=== PATIENT | female | born 1985 | race Caucasian/White ===

== ENCOUNTER 2019-09-14 08:28 | Emergency (ER) | payer BC, SELFPAY ==
[2019-09-14 08:41] VITALS: BP 129/70; PULSE 93; RESP 16; TEMP 36.5; O2SAT 99
--- NOTE | 2019-09-14 08:54 | ED.GENADULT ---
HPI - General Adult General Chief complaint: Extremity Injury, Lower Stated complaint: left leg pain Time Seen by Provider: 09/14/19 08:55 Source: patient and RN notes reviewed Mode of arrival: ambulatory Limitations: no limitations History of Present Illness HPI narrative: This is a 33 years old female present to the office for an evaluation of acute exacerbation of left lower back pain for the past 5-day. She has been dealing with recurrent lower back pain since her delivery of her child. Her child is now 4 years old. Symptoms seem to exacerbate after a lot of movement lately. She has tried Tylenol and heat pad with no relief. Lying down helps temporarily relieves her pain. Standing up is worse than sitting down or walking. Denies urinary or bowel incontinence. Denies numbness or tingling in her toe. Related Data Home Medications Medication Instructions Recorded Confirmed norgestimate-ethinyl estradiol 1 tablet PO DAILY 09/14/19 09/14/19 [Sprintec (28)] Allergies Allergy/AdvReac Type Severity Reaction Status Date / Time No Known Allergies Allergy Unverified 09/14/19 08:49 Review of Systems Review of Systems: Narrative: CONSTITUTIONAL: Denies fever or feeling ill CARDIOVASCULAR: Denies chest pain RESPIRATORY: Denies dyspnea GASTROINTESTINAL: Denies nausea, vomiting GENITOURINARY: Denies urinary/bowel symptoms SKIN: Denies rash/rash MUSCULOSKELETAL: Reports left lower back pain that goes down her thigh NEUROLOGIC: Denies lightheaded/numbness. PMFSH Family History Family History Father Diabetes mellitus Grandparent Family history of cardiovascular disease Family history of coronary artery disease Social History Social History Smoking status: Former smoker Tobacco type: cigarettes Second hand tobacco smoke exposure: No Smoking end date: 04/20/16 Alcohol intake: current Substance use: never Substance use type: does not use Gender identity (if verbalized by the patient): Female Comments At time of signature, I agree with nursing past medical, surgical, social and family history. There is no relevant family history pertinent to the presenting complaint. Exam Narrative: Exam Narrative: GENERAL: This is a well-nourished, well-developed patient, in no apparent distress. CARDIOVASCULAR: Regular rate and rhythm without murmurs, gallops, or rubs. RESPIRATORY: Clear to auscultation. Breath sounds equal bilaterally. No wheezes, rales, or rhonchi. GASTROINTESTINAL: Abdomen soft, non-tender, nondistended. Bowel sounds are active. No hepato-splenomegaly, or palpable masses. No guarding. NEURO: awake, alert, and oriented to person, place and time. There were no obvious focal neurologic abnormalities. Steady gait BACK: NO rash/lesion noted on her back. There is tenderness in the paraspinous muscles in the lumbar area. No tenderness over the spinous processes of the lumbar vertebrae. LEGS: Normal strength including dorsi-flexion and plantar flexion of the feet. Negative bilateral straight leg raising, normal and symmetrical knee reflexes. Patient able to bend forward without any exacerbation of pain. Terrence Coma Scale Eye Opening: Spontaneous 4 Luther Coma Scale Motor: Obeys Commands 6 Terrence Coma Scale Verbal: Oriented 5 Course Vital Signs Vital signs: Vital Signs Temperature 97.7 F 09/14/19 08:41 Pulse Rate 93 09/14/19 08:41 Respiratory Rate 16 09/14/19 08:41 Blood Pressure 129/70 09/14/19 08:41 Pulse Oximetry 99 09/14/19 08:41 Temperature 97.7 F 09/14/19 08:41 Pulse Rate 93 09/14/19 08:41 Respiratory Rate 16 09/14/19 08:41 Blood Pressure 129/70 09/14/19 08:41 Pulse Oximetry 99 09/14/19 08:41 Medical Decision Making MDM Narrative Medical decision making narrative: Discharge instructions reviewed with patient, as well as provided in
[2019-09-14] MEDS: KETOROLAC (*BKC) 60 MG/2 ML VIAL IM (09:13)
== END 2019-09-14 09:43 | disposition home or self-care (01) ==
PROVIDERS: Emergency Provider Nurse Practitioner; PCP Family Medicine
DX: M54.42 Lumbago with sciatica, left side (principal); Z87.891 Personal history of nicotine dependence
CPT/HCPCS: 96372; 99213; G0463; J1885

== ENCOUNTER 2020-07-04 11:30 | Outpatient (CLI) | payer BC, SELFPAY | END 2020-07-04 11:31 | disposition home or self-care (01) | LOC: ANHCOVIDVC 11:31 | PROVIDERS: PCP Family Medicine | DX: Z23 Encounter for immunization (principal) | CPT/HCPCS: 0001A; 91300 ==

== ENCOUNTER 2020-07-25 11:29 | Outpatient (CLI) | payer BC, SELFPAY | END 2020-07-25 11:30 | disposition home or self-care (01) | LOC: ANHCOVIDVC 11:30 | PROVIDERS: PCP Family Medicine | DX: Z23 Encounter for immunization (principal) | CPT/HCPCS: 0002A; 91300 ==

== ENCOUNTER 2021-10-17 09:13 | Outpatient (CLI) | payer OTHER, SELFPAY ==
--- NOTE | 2021-10-17 11:00 | NEURO_ITS ---
Impression: # Complains of all extremity numbness. # Normal motor and sensory nerve conduction study, proximally and distally. # Normal needle/EMG exam. # Clinical correlation recommended. Nerve Conduction Studies Anti Sensory Summary Table Stim Site NR Peak (ms) P-T Amp (?V) Site1 Site2 Delta-P (ms) Dist (cm) Kwaku (m/s) Left Median Anti Sensory (2-3nd Digit) Wrist 2.9 80.3 Wrist 2-3nd Digit 2.9 14.0 48 Wrist 2.7 58.8 Wrist 2-3nd Digit 2.9 14.0 48 Right Median Anti Sensory (2-3nd Digit) Wrist 2.6 87.3 Wrist 2-3nd Digit 2.6 14.0 54 Wrist 2.5 91.2 Wrist 2-3nd Digit 2.6 14.0 54 Left Radial Anti Sensory (Base 1st Digit) Wrist 1.9 50.1 Wrist Base 1st Digit 1.9 0.0 Right Radial Anti Sensory (Base 1st Digit) Wrist 2.1 47.2 Wrist Base 1st Digit 2.1 0.0 Left Sup Fibular Anti Sensory (Ant Lat Mall) 14 cm 3.0 24.9 14 cm Ant Lat Mall 3.0 16.0 53 Right Sup Fibular Anti Sensory (Ant Lat Mall) 14 cm 3.3 24.7 14 cm Ant Lat Mall 3.3 16.0 48 Left Sural Anti Sensory (Lat Mall) Calf 3.9 19.1 Calf Lat Mall 3.9 16.0 41 Right Sural Anti Sensory (Lat Mall) Calf 3.9 3.7 Calf Lat Mall 3.9 16.0 41 Left Ulnar Anti Sensory (5th Digit) Wrist 2.3 64.6 Wrist 5th Digit 2.3 14.0 61 Right Ulnar Anti Sensory (5th Digit) Wrist 2.2 73.6 Wrist 5th Digit 2.2 14.0 64 Motor Summary Table Stim Site NR Onset (ms) O-P Amp (mV) Site1 Site2 Delta-0 (ms) Dist (cm) Kwaku (m/s) Left Median Motor (Abd Poll Brev) Wrist 2.8 3.0 Elbow Wrist 4.5 28.0 62 Elbow 7.3 2.5 Right Median Motor (Abd Poll Brev) Wrist 2.6 3.0 Elbow Wrist 4.2 26.0 62 Elbow 6.8 4.3 Left Peroneal Motor (Vastus Med) Ankle 4.0 1.2 Popit Ankle 7.6 40.0 53 Popit 11.6 1.0 Right Peroneal Motor (Vastus Med) Ankle 4.1 2.0 Popit Ankle 7.0 37.0 53 Popit 11.1 1.4 Left Tibial Motor (Abd Pride Brev) Ankle 4.5 5.7 Knee Ankle 7.4 40.0 54 Knee 11.9 5.6 Right Tibial Motor (Abd Pride Brev) Ankle 4.2 4.2 Knee Ankle 7.2 39.0 54 Knee 11.4 5.0 Left Ulnar Motor (Abd Dig Minimi) Wrist 2.5 8.6 A Elbow Wrist 4.6 29.0 63 A Elbow 7.1 7.7 Right Ulnar Motor (Abd Dig Minimi) Wrist 2.3 8.3 A Elbow Wrist 4.7 28.0 60 A Elbow 7.0 6.8 F Wave Studies NR F-Lat (ms) L-R F-Lat (ms) Left Median (Mrkrs) (Abd Poll Brev) 24.90 0.66 Right Median (Mrkrs) (Abd Poll Brev) 24.24 0.66 Left Peroneal (Mrkrs) (EDB) 46.41 1.03 Right Peroneal (Mrkrs) (EDB) 45.38 1.03 Left Tibial (Mrkrs) (Abd Hallucis) 46.72 0.00 Right Tibial (Mrkrs) (Abd Hallucis) 46.72 0.00 Left Ulnar (Mrkrs) (Abd Dig Min) 25.31 0.24 Right Ulnar (Mrkrs) (Abd Dig Min) 25.56 0.24 EMG Side Muscle Nerve Root Ins Act Fibs Amp Dur Recrt Comment Right 1stDorInt Ulnar C8-T1 Nml Nml Nml Nml Nml Right Ext Indicis Radial (Post Int) C7-8 Nml Nml Nml Nml Nml Right Ext Digitorum Radial (Post Int) C7-8 Nml Nml Nml Nml Nml Right BrachioRad Radial C5-6 Nml Nml Nml Nml Nml Right PronatorTeres Median C6-7 Nml Nml Nml Nml Nml Right Abd Poll Brev Median C8-T1 Nml Nml Nml Nml Nml Right AntTibialis Dp Br Fibular L4-5 Nml Nml Nml Nml Nml Right Gastroc Tibial S1-2 Nml Nml Nml Nml Nml
== END 2021-10-17 09:14 | disposition home or self-care (01) ==
PROVIDERS: PCP Family Medicine; Visit Provider Nurse Practitioner Gerontology
DX: G62.9 Polyneuropathy, unspecified (principal)
CPT/HCPCS: 95886; 95913

== ENCOUNTER 2022-03-07 09:25 | Outpatient (CLI) | payer OTHER, SELFPAY ==
--- NOTE | 2022-03-07 09:43 | EST_ITS ---
Patient Info Name: Arleth Hair Age: 36 years : 1985 Gender: Female Ht: 62 in Wt: 205 lbs BSA: 2.06 m2 HR: 70 bpm BP: 124 / 72 mmHg Heart Rhythm: Sinus Rhythm Technical Quality: Good Exam Date: 03/07/2022 10:16 AM Exam Location: [facility] Patient Status: Outpatient Admit Date: 03/07/2022 Staff Ordering Physician: Chase Meraz DO Rayon Winder: Mónica Montoya RDCS Attending Provider: CHASE MERAZ DO Referring Physician: Mansoor HAM; Exercise Technologist: Ophelia Ramirez RDCS Exercise Physician: Chase Meraz DO Exam Type: CA stress echo Study Info Indications R07.9 - Chest pain, unspecified Treadmill exercise stress echocardiogram is performed. Summary 1. 1. Negative Milan exercise stress test for ischemic ST changes by ECG criteria. 2. 2. Good functional capacity, achieving 10 METs of workload. 3. 3. Appropriate HR response to exercise. 4. 4. Appropriate HR recovery at 1 minute post exercise. 5. 5. Negative stress echocardiogram for ischemia by wall motion analysis. 6. 6. Patient informed of the above results. Stress Echo Findings Left Ventricle Appropriate increase in LV endocardial thickening with systole. Appropriate augmentation of contractility with systole. No wall motion abnormality. Left Ventricle Normal LV systolic function, no wall motion abnormality. Protocol: Milan Stress ECG Details Stage: REST Duration (min): 1 min : 50 sec Speed (mph): 0.0 Grade (%): 0 HR (bpm): 94 SBP (mmHg): 124 DBP (mmHg): 72 METS: --- Stage: REST Duration (min): 10 min : 39 sec Speed (mph): 0.0 Grade (%): 0 HR (bpm): 79 SBP (mmHg): 124 DBP (mmHg): 72 METS: --- Stage: STAGE 1 Duration (min): 1 min : 0 sec Speed (mph): 1.7 Grade (%): 10 HR (bpm): 111 SBP (mmHg): 124 DBP (mmHg): 72 METS: --- Stage: STAGE 1 Duration (min): 2 min : 0 sec Speed (mph): 1.7 Grade (%): 10 HR (bpm): 118 SBP (mmHg): 124 DBP (mmHg): 72 METS: --- Stage: STAGE 1 Duration (min): 3 min : 0 sec Speed (mph): 1.7 Grade (%): 10 HR (bpm): 117 SBP (mmHg): 143 DBP (mmHg): 77 METS: --- Stage: STAGE 2 Duration (min): 1 min : 0 sec Speed (mph): 2.5 Grade (%): 12 HR (bpm): 127 SBP (mmHg): 143 DBP (mmHg): 77 METS: --- Stage: STAGE 2 Duration (min): 2 min : 0 sec Speed (mph): 2.5 Grade (%): 12 HR (bpm): 137 SBP (mmHg): 138 DBP (mmHg): 76 METS: --- Stage: STAGE 2 Duration (min): 3 min : 0 sec Speed (mph): 2.5 Grade (%): 12 HR (bpm): 137 SBP (mmHg): 138 DBP (mmHg): 76 METS: --- Stage: STAGE 3 Duration (min): 1 min : 0 sec Speed (mph): 3.4 Grade (%): 14 HR (bpm): 145 SBP (mmHg): 138 DBP (mmHg): 76 METS: --- Stage: STAGE 3 Duration (min): 2 min : 0 sec Speed (mph): 3.4 Grade (%): 14 HR (bpm): 158 SBP (mmHg): 173 DBP (mmHg): 88 METS: ---
== END 2022-03-07 09:26 | disposition home or self-care (01) ==
PROVIDERS: PCP Family Medicine; Visit Provider Internal Medicine Cardiovascular Disease
DX: R07.9 Chest pain, unspecified (principal)
CPT/HCPCS: 93351

== ENCOUNTER 2022-03-10 08:35 | Outpatient (CLI) | payer OTHER, SELFPAY ==
--- NOTE | 2022-03-28 13:22 | WPDHOMESLEEP ---
Sleep Study - Home Unattended Date of Study: 03/10/22 Ordering Provider: Chase Max DO Interpreting Provider: Alba Wright DO Home Sleep Study Type: Watch PAT Height: 1.57 m Weight: 92.986 kg Body Mass Index: 37.5 Neck Circumference (inches): 15.5 [place]: 12 Reason for Sleep Study Unrefreshing sleep Sleep History The patient is a 36-year-old female with anxiety, dyslipidemia, back pain and history of tobacco use that had a sleep study ordered by her box spring maker for evaluation of sleep apnea. The patient rarely awakens from sleep short of breath. She occasionally awakens at night with heartburn, belching or cough. She occasionally snores loud enough that others complain. She frequently has trouble sleeping when she has a cold. She rarely wakes up gasping for air throughout the night. She frequently has breathing problems at night observed by herself or others. She occasionally sweats excessively at night. She occasionally has heart palpitations or irregular heartbeats during the night. She occasionally falls asleep during the day but never while driving. she denies experiencing loss of muscle tone when extremely emotional. She rarely has trouble at school or work due to sleepiness. She rarely feels unable to move while waking up or falling asleep. She denies experiencing vivid dreamlike scenes upon awakening or falling asleep. She denies feeling afraid of going to sleep. She rarely has nightmares and rarely remembers her dreams. She occasionally has thoughts racing through her mind. She rarely feels sad or depressed. She constantly has anxiety. She frequently has muscular tension and frequently notices parts of her body jerk. She occasionally kicks during the night. She occasionally has crawling and aching feelings in her legs as well as leg pain during the night. She denies grinding her teeth during sleep but occasionally awakens with morning jaw pain. She is constantly bothered by pain during the day and occasionally awakened by pain during the night. She frequently wakes up feeling stiff in the morning. She frequently wakes up with sore or achy muscles. She frequently wakes up with pain in the neck, spine and other joints. The patient goes to bed at 10:00 p.m. on weekdays and at 11:00 p.m. on the weekends. It takes her 20 minutes to fall asleep. She wakes up 3-4 times throughout the night for unknown reasons. It takes her 30 minutes to fall back asleep. She wakes up at 6:00 a.m. on weekdays and 8:00 a.m. on the weekends. She typically gets 7-8 hours of sleep per night. She will stay in bed for 5-10 minutes after waking up in the morning. She currently lives with her partner and their son. She denies consuming any caffeinated beverages within 2 hours of bedtime. She denies engaging in physical exercise before bedtime. She will watch television before falling asleep. She denies taking naps in the afternoon or the evening. She drinks 1 cup of coffee per day. She will drink 1 glass of wine per week. She quit smoking cigarettes. She denies recreational drug use. [facility] Past Medical History Medical History Back pain Bronchitis COVID-19 COVID-19 long hauler FRANDY (generalized anxiety disorder) Trochanteric bursitis of left hip Family History Family History Father Diabetes mellitus Grandparent Family history of cardiovascular disease Family history of coronary artery disease Social History Social History Social History: Single Smoking packs per day: 0.5 Smoking cigarettes per day: 10.0 Years smoked: 10 Smoking pack-years: 5.00 Smoking status: Former smoker Tobacco type: cigarettes Second hand tobacco smoke exposure: No Smoking end date: 04/20/16 Alcohol intake: current Alcohol use details: rarely Substan
[2022-03-28 13:37] VITALS: BMI 37.5
== END 2022-03-11 10:47 | disposition home or self-care (01) ==
LOC: ANHCSM 08:36
PROVIDERS: PCP Family Medicine; Visit Provider Internal Medicine Cardiovascular Disease
DX: G47.10 Hypersomnia, unspecified (principal); G47.33 Obstructive sleep apnea (adult) (pediatric)
CPT/HCPCS: 95800

== ENCOUNTER 2022-07-01 13:23 | Outpatient (CLI) | payer OTHER, SELFPAY ==
--- NOTE | 2022-07-01 13:30 | ECG_ITS ---
Measurements Intervals [place] Rate: 71 P: 34 MS: 140 QRS: 11 QRSD: 89 T: 9 QT: 346 QTc: 377 Interpretive Statements SINUS RHYTHM WITH SINUS ARRHYTHMIA VOLTAGE CRITERIA FOR LVH CONSIDER INFERIOR INFARCT, AGE INDETERMINATE BASELINE ARTIFACT- I, II, III, AVR, AVL, AVF, V4-V6 ABNORMAL ECG NO PREVIOUS ECG AVAILABLE FOR COMPARISON Electronically Signed On 07-01-2022 14:02:21 CDT by Chase Max D.O.
[2022-07-01 14:15] LABS: Hematocrit 42.9 % (37.0-47.0); Hemoglobin 13.7 g/dL (12.0-15.0); Mean Corpuscular HGB Conc 31.9 g/dl (32-36); Mean Corpuscular Hemoglobin 28.4 pg (26-34); Mean Corpuscular Volume 88.8 fl (80-100); Mean Platelet Volume 8.4 fl (7.4-10.4); Platelet Count Result 372 k/mm3 (150-375); Red Blood Count 4.83 M/mm3 (4.2-5.4); Red Cell Distribution Width 12.9 % (11.5-14.5)
[2022-07-01 14:46] LABS: Alanine Aminotransferase 26 U/L (6-35); Albumin Level 4.2 g/dL (3.5-5.1); Alkaline Phosphatase 57 U/L (38-126); Anion Gap 7 mmol/L (8-16); Aspartate Amino Transferase 28 U/L (14-36); Bilirubin,Total 0.7 mg/dL (0.2-1.3); Blood Urea Nitrogen 13 mg/dL (7-17); Calcium 8.8 mg/dL (8.4-10.2); Carbon Dioxide 27 mmol/L (22-30); Chloride 106 mmol/L (98-107); Estimated Glomerular Filt Rate > 60; Glucose 170 mg/dL (65-110); Potassium 3.8 mmol/L (3.4-5.0); Sodium 140 mmol/L (137-145)
== END 2022-07-01 13:24 | disposition home or self-care (01) ==
LOC: ANHSURGERY 13:30
PROVIDERS: Internal Medicine Cardiovascular Disease; PCP Family Medicine; Visit Provider Obstetrics & Gynecology
DX: E78.2 Mixed hyperlipidemia (principal); Z30.09 Encounter for other general counseling and advice on contraception
CPT/HCPCS: 36415; 80053; 85027; 93005

== ENCOUNTER → 2022-07-01 15:51 | Outpatient (CLI) | payer OTHER, SELFPAY ==
--- NOTE | ~2022-07-01 | XR_ITS ---
AP and oblique views of the SI joints CLINICAL HISTORY: Polyarthralgia FINDINGS: No fracture or dislocation seen. Joint spaces are preserved. No evidence for inflammatory a rthropathy, sclerosis, or osteoarthritis. Soft tissues are unremarkable. IMPRESSION: Unremarkable exam. Reviewed, dictated and finalized at location . IMPRESSION: Unremarkable exam.
--- NOTE | ~2022-07-01 | XR_ITS ---
EXAM: XR knee RT 3V, XR knee LT 3V DATE: 07/01/2022 16:46 HISTORY: Polyarthralgia . COMPARISON: None available. FINDINGS: Normal mineralization. No fracture or dislocation. No lytic or blastic lesion. Joint space s are maintained. Minimal bilateral tricompartmental osteophytosis. Calcification of the right medial meniscus, possibly related to prior surgery. No erosion or periosteal change. Trace bilateral knee j oint fluid. Soft tissues within normal limits. IMPRESSION: Very mild bilateral tricompartmental knee osteoarthritis. Trace bilateral knee joint effu sions. Reviewed, dictated and finalized at location K. IMPRESSION: Very mild bilateral tricompartmental knee osteoarthritis. Trace juan ateral knee joint effusions.
--- NOTE | ~2022-07-01 | XR_ITS ---
Cervical Spine: AP, lateral, open-mouth views Clinical History: Polyarthralgia Findings: The normal lordotic curve is maintained. The vertebral bodies and posterior elements appea r intact. The intervertebral disc spaces are well maintained. Pre-vertebral soft tissues are unremar kable. Impression: No significant abnormality is seen. Reviewed, dictated and finalized at [facility]. Impression: No significant abnormality is seen.
--- NOTE | ~2022-07-01 | XR_ITS ---
Lumbosacral Spine: AP and lateral views Clinical History: Pain Findings: The normal lordotic curve is maintained. Suggestion of minimal anterior wedging deformity o f T12. There are minimal degenerative disc changes throughout the lumbar spine. Probable minimal grad e 1 retrolisthesis of L3 over L4. The intervertebral disc spaces are preserved. The sacroiliac joint s are normally outlined. Impression: Minimal anterior wedging deformity of T12. Minimal grade 1 retrolisthesis of L3 over L4. Minimal degenerative disc changes in the lumbar spine. Reviewed, dictated and finalized at location M. Impression: Minimal anterior wedging deformity of T12. Minimal grade 1 retrolisthesis of L3 over L4. Minimal degenerative disc changes in the lumbar spine.
== END ==
PROVIDERS: PCP Physician Assistant Medical; Visit Provider Physician Assistant Medical
DX: M79.10 Myalgia, unspecified site (principal); M51.36 Other intervertebral disc degeneration, lumbar region; M17.0 Bilateral primary osteoarthritis of knee
CPT/HCPCS: 72040; 72100; 72202; 73562

== ENCOUNTER 2022-07-03 00:47 | Day surgery (SDC) | payer OTHER, SELFPAY ==
[2022-06-23 09:45] VITALS: BMI 38.7
--- NOTE | 2022-06-23 09:53 | PC.NURSE ---
Report to the Outpatient Waiting Room, entrance under the green pavilion located off [facility], at time 07:00AM on date 07-03-22. Planned Procedure Time: 09:00AM. Time changes happen often and if your time is changed the preop area will call you the afternoon before. - You and your visitor will be asked to self-screen and do not enter if you have any COVID symptoms. - Only one visitor is requested with a max of two and NO children visitors are allowed at this time. - The patient visitor may be requested to leave or wait in car when not with patient due to distancing restrictions. - A mask is optional within the hospital at this time. Patients may have clear liquids (water, carbonated beverages, clear teas, apple juice) until 3 hours prior to surgery (06:00AM) with a maximum of 20 ounces. - No food from midnight until time of surgery Take the following medications with a SIP of water the morning of surgery: N/A DO NOT STOP ANY OF YOUR OTHER PRESCRIPTION MEDICATIONS PRIOR TO SURGERY ?EXCEPT THE FOLLOWING Medications to discontinue per physician VITAMINS AND SUPPLEMENTS Date to take last dose 06-29-22 Please no make-up, nail iraqi, hairspray, perfume, deodorant, or body powder the day of surgery. No jewelry (including any body piercings) or valuables the day of surgery, leave them at home. Please take a shower or bath the night before, or the morning of, surgery with an antibacterial soap. Wear comfortable, loose fitting clothing. - Jewelry must be removed prior to entering the operating room. Rings and piercings that are not removed may be cut off. - The hospital will not accept responsibility for valuables. - Please leave all valuables, including medications, at home the day of surgery. If you are going home after surgery, a licensed electric train driver must drive you home. - NO public transportation without another adult if you receive anesthesia. - We recommend that an adult stay with you for 24 hours following discharge. - We also recommend that you do not drive, make important decision, drink alcoholic beverages, or take any drugs that were not prescribed by your health care provider for at least 24 hours after your discharge time. Follow any additional instructions given to you from your surgeon. If you or anyone in your household have experienced Covid symptoms in the past week, please notify your surgeon or the nurse liaison at the phone number below for possible testing. Telephone instructions given to PATIENT and asked if any additional questions and then verbalized understanding. Patient advised to call surgeon office or pre surgery nurse liaison [phone] if any additional questions.
--- NOTE | 2022-07-01 18:26 | PM.IMHP ---
H&P: HPI History of Present Illness Date/Time: 07/01/22 18:26 36-year-old female 3 para 1021 presents for permanent sterilization. She is currently using control pills but desires permanent sterilization. We have discussed that indeed this will be a permanent procedure and discussed the failure rate and increased risk of ectopic and regret and she strongly does desires to proceed. She has had a section x1 and laparoscopic evaluation and removal of IUD due to a perforated uterus with IUD in the pelvic cavity. Otherwise no significant gynecologic or surgical issues. Chief Complaint: Desires sterilization Review of Systems Review of Systems: All systems reviewed & are unremarkable except as noted in HPI and below PMFSH Past Medical History Medical History Anxiety Back pain Bronchitis COVID-19 COVID-19 long hauler Encounter for IUD insertion 05/22/15 Paragard insertion Encounter for IUD removal 06/14/15 removed in OR b/c IUD migrated to abdominal wall FRANDY (generalized anxiety disorder) Gestational diabetes High cholesterol Kidney stones Migraines Sphincter of Oddi dysfunction Trochanteric bursitis of left hip Surgical History Surgical History History of 04/15/15 primary c/s--gestational diabetes Leonardo History of cholecystectomy (~2013) History of elective x2 History of knee surgery (~1999) (R) knee History of laparoscopy (06/14/15) lscope IUD removal--migrated IUD adhered to abdominal wall Family History Family History Father Diabetes mellitus Acute myocardial infarction Fibromyalgia Grandparent Heart disease maternal grandfather paternal grandfather Osteoporosis maternal grandmother Mother Multiple sclerosis Social History Social History Social History: Single Smoking packs per day: 0.5 Smoking cigarettes per day: 10.0 Years smoked: 12 Smoking pack-years: 6.00 Smoking status: Former smoker Tobacco type: cigarettes Second hand tobacco smoke exposure: Yes (NOT CURRENTLY) Smoking end date: 06/18/16 Alcohol intake: current Drinks per week: 1 Alcohol use details: MINIMAL Substance use: never Substance use type: does not use Living arrangements: with family Additional living arrangements comments: Pt lives with her fiance and her son. Occupation/Education: occupation Additional occupation/education comments: [employer] Gender identity (if verbalized by the patient): Female Sexual Orientation (if Verbalized by the Patient): Straight or Heterosexual Spiritual care concerns: No Meds Home Medications and Allergies Home Medications Medication Instructions Recorded Confirmed Type azelastine 137 mcg (0.1 %) nasal 1 spray intranasal Q12H #30 mL 01/03/21 06/23/22 Rx spray aerosol APAP #1 ea 03/28/22 05/27/22 Rx atorvastatin 20 mg tablet 20 mg PO DAILY #90 tabs 04/07/22 06/23/22 Rx omega 4-ydf-vlf-fish oil 1,000 mg 1 cap PO BID #180 caps 04/07/22 06/23/22 Rx (120 mg-180 mg) capsule (Fish Oil) norgestimate 0.25 mg-ethinyl 1 tablet PO DAILY #84 tabs 05/26/22 06/23/22 Rx estradiol 35 mcg tablet (Sprintec (28)) Adult Probiotic 1 tab-cap PO DAILY 06/23/22 06/23/22 History tumeric 100 mg-gris 150 mg-olive 1 cap PO DAILY 06/23/22 06/23/22 History 50 mg-oreg 150 mg-caprylate capsule Allergies Allergy/AdvReac Type Severity Reaction Status Date / Time No Known Allergies Allergy Verified 06/23/22 09:42 Exam Const: General: cooperative, healthy appearing and comfortable Resp: Effort & Inspection: normal respiratory effort Auscultation: clear to auscultation bilaterally Cardio: Rate: regular rate Rhythm: regular rhythm GI: Inspection: normal
[2022-07-03] VITALS (7 sets, daily range): BP systolic 117–134; BP diastolic 64–86; PULSE 56–101; RESP 16–20; TEMP 36.4–36.7; O2SAT 98–100
[2022-07-03] MEDS: ACETAMINOPHEN 500 MG TABLET 1000 MG PO (07:07)
--- NOTE | 2022-07-03 07:30 | WPDHPUPDATE1 ---
History and Physical Update Update Date/Time: 07/03/22 07:30 History and Physical has been reviewed, including an updated exam of the patient. There are NO changes in the patient's condition. Risks, benefits, and alternatives have been discussed and questions answered. Patient agrees to proceed with procedure.
[2022-07-03] MEDS: KETOROLAC 15 MG/ML VIAL (*BKC) IV PUSH (08:23)
--- NOTE | 2022-07-03 08:32 | WPDANESEPPF ---
Anes - Initial Pre Proc Eval Procedure: Operation Date: 07/03/22 09:00 Proposed Procedures p Laparoscopic Bilateral Salpingectomy - Stanley Ward MD Date/Time: 07/03/22 08:32 Surgeon: Stanley Ward MD Pre Op Diagnosis: Desire Sterilization Patient Data Age: 36 Gender: F Height: 1.57 m Weight: 94.4 kg Last Vital Signs Temp 36.4 C 07/03/22 07:13 Pulse 95 07/03/22 07:13 Resp 16 07/03/22 07:13 BP 134/86 07/03/22 07:13 Pulse Ox 98 07/03/22 07:13 O2 Del Method Room Air 07/03/22 07:13 Allergies Allergy/AdvReac Type Severity Reaction Status Date / Time No Known Allergies Allergy Verified 07/03/22 07:02 Home Medications Medication Instructions Recorded Confirmed Type azelastine 137 mcg (0.1 %) nasal 1 spray intranasal Q12H #30 mL 01/03/21 06/23/22 Rx spray aerosol APAP #1 ea 03/28/22 05/27/22 Rx atorvastatin 20 mg tablet 20 mg PO DAILY #90 tabs 04/07/22 06/23/22 Rx omega 1-gjg-rvx-fish oil 1,000 mg 1 cap PO BID #180 caps 04/07/22 06/23/22 Rx (120 mg-180 mg) capsule (Fish Oil) norgestimate 0.25 mg-ethinyl 1 tablet PO DAILY #84 tabs 05/26/22 06/23/22 Rx estradiol 35 mcg tablet (Sprintec (28)) Adult Probiotic 1 tab-cap PO DAILY 06/23/22 06/23/22 History tumeric 100 mg-gris 150 mg-olive 1 cap PO DAILY 06/23/22 06/23/22 History 50 mg-oreg 150 mg-caprylate capsule Patient hx anesthesia problems: none Family hx anesthesia problems: none Results Review: All pre-operative results and documents have been reviewed as part of the pre-operative evaluation. [facility] Past Medical History Medical History Anxiety Back pain Bronchitis COVID-19 COVID-19 long hauler Encounter for IUD insertion 05/22/15 Paragard insertion Encounter for IUD removal 06/14/15 removed in OR b/c IUD migrated to abdominal wall FRANDY (generalized anxiety disorder) Gestational diabetes High cholesterol Kidney stones Migraines Sphincter of Oddi dysfunction Trochanteric bursitis of left hip Surgical History Surgical History History of 04/15/15 primary c/s--gestational diabetes Leonardo History of cholecystectomy (~2013) History of elective x2 History of knee surgery (~1999) (R) knee History of laparoscopy (06/14/15) lscope IUD removal--migrated IUD adhered to abdominal wall Family History Family History Father Diabetes mellitus Acute myocardial infarction Fibromyalgia Grandparent Heart disease maternal grandfather paternal grandfather Osteoporosis maternal grandmother Mother Multiple sclerosis Social History Social History Social History: Single Smoking packs per day: 0.5 Smoking cigarettes per day: 10.0 Years smoked: 12 Smoking pack-years: 6.00 Smoking status: Former smoker Tobacco type: cigarettes Second hand tobacco smoke exposure: Yes (NOT CURRENTLY) Smoking end date: 06/18/16 Alcohol intake: current Drinks per week: 1 Alcohol use details: MINIMAL Substance use: never Substance use type: does not use Living arrangements: with family Additional living arrangements comments: Pt lives with her fiance and her son. Occupation/Education: occupation Additional occupation/education comments: [employer] Gender identity (if verbalized by the patient): Female Sexual Orientation (if Verbalized by the Patient): Straight or Heterosexual Spiritual care concerns: No Anes - Eval Final PreProcedure Day of Procedure 07/03/22 08:32 Patient weight: obese Heart: regular rate and rhythm Lungs: clear to auscultation Airway: Mallampati scale class II Neurological: alert and oriented Last oral intake: >/= 8 hours ASA classification: III Emergent: no Anesthetic plan
[2022-07-03] MEDS: LACTATED RINGERS 1,000 ML 30 ML IV CONT ×2 (08:38→10:24)
--- NOTE | 2022-07-03 09:50 | P.OP_ITS ---
Procedure Note - Detailed Date of Procedure 07/03/22 Pre-op Diagnosis Desire Sterilization Post-op Diagnosis Same Procedure Performed Laparoscopic bilateral salpingectomy Surgeon Stanley Ward MD Anesthesia General Findings Uterus mildly enlarged and adhered to the anterior abdominal wall. Tubes noted without abnormality. Omental adhesions to the anterior abdominal wall. Description of Procedure Patient prepped and draped in usual manner for this procedure. 5mm trocars placed through the umbilicus under direct visualization and the pelvic cavity was entered without difficulty. Lateral lower abdominal trocar sites were then marked and placed under direct visualization. Using the Harmonic scalpel the mesial salpinx was cauterized and cut bilaterally with tubes remove out difficulty. There was no bleeding. Uterus was adhered to the anterior abd ominal wall in the area previous C-sections. At this point the gas was allowed to escape incisions approximated using 4-0 Monocryl and the patient was sent to recovery room in stable condition. Estimated Blood Loss 10 Drains No Packing No Pathology Yes Complications No immediate complications Condition Stable Disposition PACU [facility] Billing Surgery - Charge Forward: Surgery Billing
[2022-07-03] MEDS: ONDANSETRON INJ 4 MG/2 ML VIAL IV PUSH (10:07)
[2022-07-03] MEDS: oxyCODONE HCL (*CRX) 5 MG TAB IR PO (10:42)
== END 2022-07-03 11:22 | disposition home or self-care (01) ==
PROVIDERS: PCP Family Medicine; Visit Provider Obstetrics & Gynecology
PROC: (CPT 49320; principal; 2022-07-03 09:00)
DX: Z30.2 Encounter for sterilization (principal); E78.00 Pure hypercholesterolemia, unspecified; F41.1 Generalized anxiety disorder; Z87.891 Personal history of nicotine dependence; E66.9 Obesity, unspecified; Z68.38 Body mass index [BMI] 38.0-38.9, adult
CPT/HCPCS: 58661; 88302; A9270; J1100; J1885; J2001; J2250; J2405; J2704; J7030; J7120

== ENCOUNTER 2022-12-28 09:36 | Outpatient (CLI) | payer OTHER, SELFPAY ==
--- NOTE | ~2022-12-28 | MR_ITS ---
MRI of the left wrist Technique: Coronal T1 weighted and proton density fat sat images, and axial and sagittal proton-densi ty and proton-density fat-sat images were acquired. Clinical History: Injury Findings: Scapholunate ligament is intact, and there is no widening of the scapholunate interval. Jazmín otriquetral ligament is intact. Central articular disc of the TFCC is intact. No TFCC perforation nelly dent. There is suggestion of dorsal subluxation of the distal ulna at the DRUJ, with probable high-grade sp rain/partial tearing of the volar distal radioulnar ligament. There is a probable ganglion cyst just dorsal to the scapholunate ligament measuring 3 mm in diameter (coronal image 17, axial image 15). Flexor tendons and carpal tunnel are unremarkable. Extensor tendons are unremarkable. No other soft t issue mass or fluid collection evident. IMPRESSION: Possible dorsal subluxation of the distal ulna the right UVJ with associated suspected sprain or part ial tearing of the volar distal radioulnar ligament. 3 mm ganglion cyst just dorsal to the scapholunate ligament. Reviewed, dictated and finalized at [facility]. IMPRESSION: Possible dorsal subluxation of the distal ulna the right UVJ with associated cee spected sprain or partial tearing of the volar distal radioulnar ligament. 3 mm ganglion cyst just dorsal to the scapholunate ligament.
== END 2022-12-28 09:37 | disposition home or self-care (01) ==
LOC: ANHIMG 09:38
PROVIDERS: PCP Family Medicine; Visit Provider Physician Assistant
DX: S69.92XA Unspecified injury of left wrist, hand and finger(s), initial encounter (principal); Q79.60 Ehlers-Danlos syndrome, unspecified; X58.XXXA Exposure to other specified factors, initial encounter
CPT/HCPCS: 73221

== ENCOUNTER 2023-01-06 14:26 | Outpatient (CLI) | payer OTHER, SELFPAY ==
--- NOTE | 2023-01-06 14:41 | ECHO_ITS ---
Patient Info Name: Arleth Hair Age: 37 years : 1985 Gender: Female Ht: 62 in Wt: 200 lbs BSA: 2.04 m2 HR: 84 bpm BP: 146 / 93 mmHg Heart Rhythm: Sinus Rhythm Technical Quality: Fair Exam Date: 01/06/2023 2:53 PM Exam Location: [facility] Patient Status: Outpatient Admit Date: 01/06/2023 Staff Ordering Physician: Chase Max DO Chairlift Operator: Mónica Montoya RDCS Attending Provider: Chase Max DO Referring Physician: Mansoor HAM; Exam Type: CA echo doppler color flow Study Info Indications - Ioana-Danlos diagnosis R00.2 - Palpitations Complete two-dimensional, color flow and Doppler transthoracic echocardiogram is performed. Summary 1. Complete two-dimensional, color flow and Doppler transthoracic echocardiogram is performed. 2. Left ventricular chamber dimension is normal. 3. Left ventricular systolic function is normal, estimated at 60-65%. 4. The left ventricular diastolic function is grade II diastolic dysfunction. 5. E/e' 4 is not elevated. 6. No pulmonary hypertension, estimated pulmonary arterial systolic pressure is 19 mmHg. 7. There is trace pulmonic regurgitation. Left Ventricle E/e' 4 is not elevated. Left ventricular chamber dimension is normal. Left ventricular systolic function is normal, estimated at 60-65%. The left ventricular diastolic function is grade II diastolic dysfunction. Right Ventricle Right ventricular systolic function is normal and with normal TAPSE 2.4 cm. Right ventricular chamber dimension is normal. Left Atria Left atrial chamber dimension is normal. Right Atria Right atrial chamber dimension is normal. Aortic Valve The aortic valve is trileaflet. There is no aortic valve stenosis. There is no aortic valve regurgitation. Pulmonic Valve There is trace pulmonic regurgitation. Mitral Valve There is no mitral valve stenosis. There is no mitral valve regurgitation. Tricuspid Valve There is no tricuspid valve regurgitation. No pulmonary hypertension, estimated pulmonary arterial systolic pressure is 19 mmHg. Pericardium/Pleural There is no pericardial effusion. Inferior Vena Cava Normal inferior vena cava with >50% collapse upon inspiration consistent with normal right atrial pressure, 5 mmHg. Aorta The aortic root size at the sinus of Valsalva is normal. Left Ventricular Outflow Tract Name Value Normal LVOT 2D LVOT Diameter 2.0 cm LVOT Doppler LVOT Peak Gradient 4 mmHg LVOT Mean Gradient 2 mmHg LVOT VTI 20 cm LVOT VTI/AV VTI Ratio 0.6 LVOT Stroke Volume 61 ml LVOT CO 4.1 l/min LVOT CI 2.0 l/min/m2 Pulmonic Valve Name Value Normal RVOT Doppler RVOT Peak Gradient 2 mmHg PV Doppler
== END 2023-01-06 14:27 | disposition home or self-care (01) ==
LOC: ANHCARD 14:27
PROVIDERS: PCP Family Medicine; Visit Provider Internal Medicine Cardiovascular Disease
DX: Q79.60 Ehlers-Danlos syndrome, unspecified (principal)
CPT/HCPCS: 93306

== ENCOUNTER → 2023-02-23 11:00 | Outpatient (CLI) | payer OTHER, SELFPAY ==
--- NOTE | ~2023-02-23 | XR_ITS ---
EXAMINATION: XR shoulder RT min 2V INDICATION: Right shoulder pain TECHNIQUE: Four views of the right shoulder are submitted. COMPARISON: None FINDINGS: Normal alignment. No fracture. Glenohumeral and acromioclavicular joint spaces are normal. Soft tissues are unremarkable. IMPRESSION: 1. No acute osseous abnormality. Reviewed, dictated and finalized at location B. MAKER
--- NOTE | ~2023-02-23 | XR_ITS ---
AP view of the pelvis and lateral view of the bilateral hips Clinical history: Pain Findings: No acute fracture or dislocation is seen. Osseous alignment is anatomic. Bilateral hip and SI joint spaces are preserved. Soft tissues are unremarkable. Impression: No significant abnormality is seen. Reviewed, dictated and finalized at [facility]. ACE REPAIRER Impression: No significant abnormality is seen.
--- NOTE | ~2023-02-23 | XR_ITS ---
Left Shoulder Technique: AP and axillary views were obtained. Clinical History: Pain Findings: No fracture or dislocation is seen. Osseous alignment is anatomic. The glenohumeral and acr omioclavicular joint spaces are preserved. Soft tissues are unremarkable. Impression: Unremarkable left shoulder radiographs. Reviewed, dictated and finalized at [facility]. IAN LANGUAGE INSTRUCTOR Impression: Unremarkable left shoulder radiographs.
== END ==
PROVIDERS: PCP Physician Assistant Medical; Visit Provider Physician Assistant Medical
DX: M25.50 Pain in unspecified joint (principal)
CPT/HCPCS: 73030; 73521

== ENCOUNTER → 2023-05-07 14:10 | Outpatient (CLI) | payer OTHER, SELFPAY ==
--- NOTE | ~2023-05-07 | US_ITS ---
EXAMINATION: US pelvic complete w TV DATE: 05/07/2023 14:39 INDICATION: Irregular periods, history of tubal ligation TECHNIQUE: Multiple transabdominal and endovaginal sonographic images of the pelvis were obtained. COMPARISON: None. FINDINGS: The uterus measures 8.9 x 4.6 x 3.7 cm. A 10 mm mass of the anterior uterine body has the a ppearance of an intramural fibroid. The endometrial complex measures 6 mm. The right ovary measures 2 .6 x 1.9 x 1.4 cm. The left ovary measures 2.1 x 2.0 x 2.2 cm. There is normal vascular flow in the o varies. There is no free fluid in the pelvis. IMPRESSION: 1. No sonographic correlate for the patient's symptoms. Reviewed, dictated and finalized at location F. IAL NEEDS TUTOR
== END ==
PROVIDERS: PCP Obstetrics & Gynecology; Visit Provider Obstetrics & Gynecology
DX: N92.6 Irregular menstruation, unspecified (principal)
CPT/HCPCS: 76830; 76856

== ENCOUNTER 2023-05-07 14:44 | Outpatient (CLI) | payer OTHER, SELFPAY ==
[2023-05-07 19:17] LABS: Alanine Aminotransferase 40 U/L (6-35); Albumin Level 4.3 g/dL (3.5-5.1); Alkaline Phosphatase 69 U/L (38-126); Anion Gap 7 mmol/L (8-16); Aspartate Amino Transferase 39 U/L (14-36); Bilirubin,Total 1.2 mg/dL (0.2-1.3); Blood Urea Nitrogen 13 mg/dL (7-17); Calcium 9.5 mg/dL (8.4-10.2); Carbon Dioxide 30 mmol/L (22-30); Chloride 103 mmol/L (98-107); Estimated Glomerular Filt Rate > 60; Glucose 79 mg/dL (65-110); Potassium 3.6 mmol/L (3.4-5.0); Sodium 140 mmol/L (137-145)
[2023-05-07 19:34] LABS: Free T4 Free Thyroxine 0.93 ng/mL (0.78-2.19)
[2023-05-11 15:29] LABS: Testosterone Free 5.8 pg/mL (0.1-6.4); Testosterone Total 40 ng/dL (2-45)
[2023-05-13 07:21] LABS: Prolactin 8.3 ng/mL (***)
== END 2023-05-07 14:45 | disposition home or self-care (01) ==
PROVIDERS: PCP Obstetrics & Gynecology; Visit Provider Obstetrics & Gynecology
DX: N91.2 Amenorrhea, unspecified (principal)
CPT/HCPCS: 36415; 80053; 84146; 84402; 84403; 84439; 84443

== ENCOUNTER 2023-09-03 00:37 | Day surgery (SDC) | payer OTHER, SELFPAY ==
[2023-08-20 12:53] VITALS: BMI 40.3
[2023-09-03 11:14] VITALS: BMI 38.7
[2023-09-03 11:16] VITALS: BP 138/89; PULSE 94; RESP 19; TEMP 36.2; O2SAT 98
[2023-09-03] MEDS: LACTATED RINGERS 1,000 ML 150 ML IV CONT (11:19)
--- NOTE | 2023-09-03 11:41 | PM.HPGS ---
History of Present Illness History of Present Illness Consent: Risks, benefits, and alternatives have been discussed and questions answered. Patient agrees to proceed with procedure. Chief complaint: Nausea, Epigastric pain, Dysphagia Gastroenteritis Narrative: Arleth Hair is a 37 year old female with chronic nausea and diarrhea, this has been going on for many years and had scopes in the past. Currently using questran (s/p cholecystectomy) and ppi, never had GES. Review of Systems Review of Systems: All systems reviewed & are unremarkable except as noted in HPI and below PMFSH Past Medical History Medical History (Updated 07/14/23 @ 15:33 by Tiffanie Morgan APN-C) Anxiety Back pain Bronchitis Chronic diarrhea COVID-19 COVID-19 long hauler Dysphagia Encounter for IUD insertion 05/22/15 Paragard insertion Encounter for IUD removal 06/14/15 removed in OR b/c IUD migrated to abdominal wall Epigastric pain FRANDY (generalized anxiety disorder) Gestational diabetes High cholesterol Irregular periods Kidney stones Migraines Nausea Screening mammogram, encounter for Sphincter of Oddi dysfunction Trochanteric bursitis of left hip Surgical History Surgical History (Updated 07/14/23 @ 16:09 by TANJA LewisN-C) History of 04/15/15 primary c/s--gestational diabetes Leonardo History of cholecystectomy (~2013) History of elective x2 History of knee surgery (~1999) (R) knee History of laparoscopy (06/14/15) lscope IUD removal--migrated IUD adhered to abdominal wall History of tubal ligation Family History Family History Father Diabetes mellitus Acute myocardial infarction Fibromyalgia Grandparent Heart disease maternal grandfather paternal grandfather Osteoporosis maternal grandmother Mother Multiple sclerosis Social History Social History Social History: Single Smoking packs per day: 0.5 Smoking cigarettes per day: 10.0 Years smoked: 12 Smoking pack-years: 6.00 Smoking status: Former smoker Tobacco type: cigarettes Second hand tobacco smoke exposure: Yes (NOT CURRENTLY) Smoking end date: 06/18/16 Alcohol intake: current Alcohol use details: MINIMAL 1 month Substance use: never Substance use type: does not use Do You Feel Safe in your Home?: Yes Lack of Transportation: No Lack of Food: Never True Current Housing: I Have Housing Concerned About Future Housing: No Difficulty Paying Gas/Electric Bills: No Difficulty Paying for Meds: No Currently Unemployed: No Education: Bachelor's Degree Difficulty w/ Childcare or Family Care: No Living arrangements: with family Additional living arrangements comments: Pt lives with her fiance and her son. Occupation/Education: occupation Additional occupation/education comments: [employer] Gender identity (if verbalized by the patient): Female Sexual Orientation (if Verbalized by the Patient): Straight or Heterosexual Spiritual care concerns: No Meds Home Medications and Allergies Home Medications Medication Instructions Recorded Confirmed Type azelastine 137 mcg (0.1 %) nasal 1 spray intranasal Q12H #30 mL 01/03/21 09/03/23 Rx spray aerosol APAP #1 ea 03/28/22 09/03/23 Rx omega 1-ovv-qpb-fish oil 1,000 mg 1 cap PO BID #180 caps 04/07/22 09/03/23 Rx (120 mg-180 mg) capsule (Fish Oil) Adult Probiotic 1 tab-cap PO DAILY 06/23/22 09/03/23 History turmeric 100 mg-gris 150 1 cap PO DAILY 06/23/22 09/03/23 History mg-olive 50 mg-oreg 150 mg-capryl capsule duloxetine 20 mg capsule,delayed 20 mg PO BID 11/27/22 09/03/23 History release (Cymbalta) cholestyramine (with sugar) 4 gram 4 g PO BID #368.76 grams 07/14/23 09/03/23 Rx oral powder (Questran) omeprazole 40 mg capsule,delayed 40 mg PO DAILY 1 month #30 caps 07/14/23
--- NOTE | 2023-09-03 11:46 | WPDANESEPPF ---
Anes - Initial Pre Proc Eval Procedure: Operation Date: 09/03/23 13:00 Proposed Procedures p Esophagogastroduodenoscopy & Colonoscopy - Zain Rodriguez MD Date/Time: 09/03/23 11:46 Surgeon: Zain Rodriguez MD Pre Op Diagnosis: Nausea, Epigastric pain, Dysphagia Gastroenteritis Patient Data Age: 37 Gender: F Height: 1.57 m Weight: 96.1 kg Last Vital Signs Temp 97.1 F L 09/03/23 11:16 Pulse 94 09/03/23 11:16 Resp 19 09/03/23 11:16 BP 138/89 09/03/23 11:16 Pulse Ox 98 09/03/23 11:16 O2 Del Method Room Air 09/03/23 11:16 Allergies Allergy/AdvReac Type Severity Reaction Status Date / Time No Known Allergies Allergy Verified 09/03/23 11:12 Home Medications Medication Instructions Recorded Confirmed Type azelastine 137 mcg (0.1 %) nasal 1 spray intranasal Q12H #30 mL 01/03/21 09/03/23 Rx spray aerosol APAP #1 ea 03/28/22 09/03/23 Rx omega 3-zdi-qhl-fish oil 1,000 mg 1 cap PO BID #180 caps 04/07/22 09/03/23 Rx (120 mg-180 mg) capsule (Fish Oil) Adult Probiotic 1 tab-cap PO DAILY 06/23/22 09/03/23 History turmeric 100 mg-gris 150 1 cap PO DAILY 06/23/22 09/03/23 History mg-olive 50 mg-oreg 150 mg-capryl capsule duloxetine 20 mg capsule,delayed 20 mg PO BID 11/27/22 09/03/23 History release (Cymbalta) cholestyramine (with sugar) 4 gram 4 g PO BID #368.76 grams 07/14/23 09/03/23 Rx oral powder (Questran) omeprazole 40 mg capsule,delayed 40 mg PO DAILY 1 month #30 caps 07/14/23 09/03/23 Rx release atorvastatin 20 mg tablet 10 mg PO DAILY 08/20/23 09/03/23 History diclofenac sodium 75 mg 75 mg PO BID 08/20/23 09/03/23 History tablet,delayed release Patient hx anesthesia problems: none Family hx anesthesia problems: none Results Review: All pre-operative results and documents have been reviewed as part of the pre-operative evaluation. [facility] Past Medical History Medical History (Updated 07/14/23 @ 15:33 by VEGA Lewis) Anxiety Back pain Bronchitis Chronic diarrhea COVID-19 COVID-19 long hauler Dysphagia Encounter for IUD insertion 05/22/15 Paragard insertion Encounter for IUD removal 06/14/15 removed in OR b/c IUD migrated to abdominal wall Epigastric pain FRANDY (generalized anxiety disorder) Gestational diabetes High cholesterol Irregular periods Kidney stones Migraines Nausea Screening mammogram, encounter for Sphincter of Oddi dysfunction Trochanteric bursitis of left hip Surgical History Surgical History (Updated 07/14/23 @ 16:09 by VEGA Lewis) History of 04/15/15 primary c/s--gestational diabetes Leonardo History of cholecystectomy (~2013) History of elective x2 History of knee surgery (~1999) (R) knee History of laparoscopy (06/14/15) lscope IUD removal--migrated IUD adhered to abdominal wall History of tubal ligation Family History Family History Father Diabetes mellitus Acute myocardial infarction Fibromyalgia Grandparent Heart disease maternal grandfather paternal grandfather Osteoporosis maternal grandmother Mother Multiple sclerosis Social History Social History Social History: Single Smoking packs per day: 0.5 Smoking cigarettes per day: 10.0 Years smoked: 12 Smoking pack-years: 6.00 Smoking status: Former smoker Tobacco type: cigarettes Second hand tobacco smoke exposure: Yes (NOT CURRENTLY) Smoking end date: 06/18/16 Alcohol intake: current Alcohol use details: MINIMAL 1 month Substance use: never Substance use type: does not use Do You Feel Safe in your Home?: Yes Lack of Transportation: No Lack of Food: Never True Current Housing: I Have Housing Concerned About Future Housing: No Difficulty Paying Gas/Electric Bills: No Difficulty Paying for Meds: No Curren
--- NOTE | 2023-09-03 12:00 | SUR.OPER ---
EGD: [id number] COLON: Start 1201
[2023-09-03 12:16] VITALS: BP 126/82; PULSE 62; RESP 20; O2SAT 99
--- NOTE | 2023-09-03 12:25 | SUR.PHASEII ---
When patient started arousing as she was coming into recovery, she stated that it felt like she had bit her lip. Dee JOHNSON looked at her mouth and determined that had been where the bottom lip of the bite block had been sitting in her mouth. Checked back in with patient about 10 min later, she stated lip was still sore but okay.
[2023-09-03 12:26] VITALS: BP 135/96; PULSE 56; RESP 19; O2SAT 100
[2023-09-03 12:36] VITALS: BP 131/83; PULSE 60; RESP 19; O2SAT 100
== END 2023-09-03 12:40 | disposition home or self-care (01) ==
PROVIDERS: PCP Family Medicine; Visit Provider Internal Medicine Gastroenterology
PROC: 0DJ08ZZ Inspection of Upper Intestinal Tract, Via Natural or Artificial Opening Endoscopic (ICD-10-PCS; CPT 43235; principal; 2023-09-03 13:00)
DX: K29.70 Gastritis, unspecified, without bleeding (principal); K63.5 Polyp of colon; K64.8 Other hemorrhoids; K58.9 Irritable bowel syndrome, unspecified; F41.9 Anxiety disorder, unspecified; E78.00 Pure hypercholesterolemia, unspecified; E66.9 Obesity, unspecified; Z68.38 Body mass index [BMI] 38.0-38.9, adult; Z98.890 Other specified postprocedural states; Z90.49 Acquired absence of other specified parts of digestive tract; Z98.51 Tubal ligation status; Z87.891 Personal history of nicotine dependence; Z82.49 Family history of ischemic heart disease and other diseases of the circulatory system
CPT/HCPCS: 45385; 45380; 43239; 88305; J2001; J2405; J2704; J3010; J7120

== ENCOUNTER 2024-01-04 15:58 | Outpatient (CLI) | payer OTHER, SELFPAY ==
--- NOTE | ~2024-01-04 | MM_ITS ---
EXAMINATION: MM screening mayelin BI w trice HISTORY: Screening mammogram TECHNIQUE: Craniocaudal and mediolateral oblique 3-D tomosynthesis images were obtained and synthetic 2-D images were generated. CAD analysis was submitted and interpreted. COMPARISON: No prior mammogram is available for comparison at this institution. BREAST PARENCHYMAL COMPOSITION:Not Dense. There are scattered areas of fibroglandular density. FINDINGS: No suspicious mass, calcification, or architectural distortion are identified in either shanti ast to suggest malignancy. There has been no suspicious interval change. IMPRESSION: No mammographic evidence of malignancy. Recommend routine screening mammography in one year. BI-RADS Category 1: Negative Reviewed, dictated and finalized at location .
== END 2024-01-04 15:59 | disposition home or self-care (01) ==
LOC: MICIMG 15:58
PROVIDERS: PCP Obstetrics & Gynecology; Visit Provider Obstetrics & Gynecology
DX: Z12.31 Encounter for screening mammogram for malignant neoplasm of breast (principal)
CPT/HCPCS: 77063; 77067

== ENCOUNTER 2024-01-27 10:31 | Outpatient (CLI) | payer OTHER, SELFPAY ==
--- NOTE | ~2024-01-27 | MR_ITS ---
MRI of the left shoulder Technique: Axial proton-density fat-sat images, coronal proton density fat-sat and T2 fat-sat images, and sagittal T1-weighted and T2 fat-sat images were acquired. Clinical History: Pain, hypermobility Findings: There is minimal AC joint degenerative change. Coracoclavicular, coracoacromial, and coraco humeral ligaments are intact. Supraspinatus and infraspinatus tendons are intact, without partial or full-thickness tear. Subscapul su tendon is intact. Tendon of the long head of the biceps is intact. No labral tear evident. Inferior glenohumeral ligament is intact. No degenerative change or effusion of the glenohumeral join t. No fluid distention of the subacromial/subdeltoid bursa. No muscle atrophy or edema. Impression: Minimal AC joint degenerative change, otherwise essentially unremarkable exam. Reviewed, dictated and finalized at [facility]. Impression: Minimal AC joint degenerative change, otherwise essentially unremarkable exam.
== END 2024-01-27 10:32 | disposition home or self-care (01) ==
LOC: GOSHIMG 10:36
PROVIDERS: PCP Family Medicine; Visit Provider Physician Assistant Medical
DX: M19.012 Primary osteoarthritis, left shoulder (principal); G89.29 Other chronic pain
CPT/HCPCS: 73221

== ENCOUNTER 2025-01-05 11:38 | Outpatient (CLI) | payer OTHER, SELFPAY ==
--- NOTE | ~2025-01-05 | MM_ITS ---
EXAMINATION: MM screening mayelin BI w trice HISTORY: Screening TECHNIQUE: Craniocaudal and mediolateral oblique 3-D tomosynthesis images were obtained and synthetic 2-D images were generated. CAD analysis was submitted and interpreted. COMPARISON: 01/04/2024 BREAST PARENCHYMAL COMPOSITION: There are scattered areas of fibroglandular density. FINDINGS: There is no evidence of suspicious mass, calcification, or architectural distortion in either breast to suggest malignancy. There has been no significant interval change. IMPRESSION: 1. No mammographic evidence of malignancy. Recommend routine screening mammography in one year. BI-RADS Category 1: Negative Reviewed, dictated and finalized at location Q. IMPRESSION: 1. No mammographic evidence of malignancy. Recommend routine screening mammogra phy in one year. BI-RADS Category 1: Negative
--- OUTSIDE RECORDS SUMMARY | 2025-01-05 11:59 | XMS_ITS | Encounter Summary ---
Author Organization [facility] Address [address] [place] [id number] Care Team Providers Care Radar Engineer Name Role Phone Megan Alvarado MD Primary Care Provider + Encounter Details Date Type Department Care Team (Late Contact Info) Description 11/15/2024 Results Follow-Up [facility] Family Medicine [facility] [address] [place] [phone] Megan Alvarado MD [address] [id number] MG DIAG W RENITA RT DIGI, BREAST RT BIRAD LTD Social History Tobacco Use Types Packs/Day Years Used Date Smoking Tobacco: Former Cigarettes 2 009 - 05/09/2018 Passive Smoke Exposure: Past Smokeless Tobacco: Never Alcohol Use Standard Drinks/Week Comments Yes 1.7 (1 standard drink = 0.6 oz p ure alcohol) rare PHQ-2 Answer Date Recorded Patient Health Questionnaire-2 Score 0 06/09/2024 Comments Unknown Sex and Gender Information Value Date Recorded Sex Assigned at Female 12/22/2023 7:55 AM CDT Legal Sex Female 7:19 PM CDT Gender Identity Female 12/22/2023 7:55 AM CDT Sexual Orientation Straight 12/22/2023 7: 55 AM CDT documented as of this encounter Plan of Treatment Upcoming Encounters Date Type Department Care Team (Late Contact Info) Description 06/09/2025 1:20 PM DIRECT SERVICE PROVIDER Office Visit [facility] [place] [address] [place] [address] Megan Alvarado MD [address] [place] [address] documented as of this encounter Visit Diagnoses Not on filedocumented in this encounter Additional Health Concerns Assessment Noted Time PHQ-9 Depression Total Score: 11 025 12:55 PM DIRECT SERVICE PROVIDER documented as of this encounter Care Teams Radar Engineer Relationship Specialty Start Date End Date Megan Alvarado MD [address] [place], [place] [phone] PCP - General FAMILY PRACTICE 06/09/24 documented as of this encounter
--- OUTSIDE RECORDS SUMMARY | 2025-01-05 11:59 | XMS_ITS | Encounter Summary ---
Author Organization [facility] Address [address] [place] [address] Care Team Providers Care Feed Mill Tender Name Role Phone Tanner Simon MD Primary Care Provider Unavailable Megan Alvarado MD Primary Care Provider + Encounter Details Date Type Department Care Team (Late st Contact Info) Description 02/21/2017 Abstract [facility] [place], [place] [id number] Tanner Simon MD Social History Tobacco Use Types Packs/Day Years Used Date Smoking Tobacco: Never Assessed Comments Unknown Sex and Gender Information Value Date Recorded Sex Assigned at Female 12/22/2023 7:55 AM CDT Legal Sex Female 7:19 PM CDT Gender Identity Female 12/22/2023 7:55 AM CDT Sexual Orientation Straight 12/22/2023 7: 55 AM CDT documented as of this encounter Plan of Treatment Upcoming Encounters Date Type Department Care Team (Late Contact Info) Description 06/09/2025 1:20 PM MANAGER AMBULATORY Office Visit [facility] Family [facility] - [place] [address] [place] [phone] Megan Alvarado MD [address] [place], [place] [phone] documented as of this encounter Visit Diagnoses Not on filedocumented in this encounter Care Teams Feed Mill Tender Relationship Specialty Start Date End Date Tanner Simon MD PCP - General 05/23/14 Megan Alvarado MD [address] [place] [id number] PCP - General FAMILY PRACTICE 06/09/24 documented as of this encounter
--- OUTSIDE RECORDS SUMMARY | 2025-01-05 11:59 | XMS_ITS | Clinical Summary ---
Author Organization [facility] [address] [facility] Address [address] [place] [address] Care Team Providers Care Cracker And Cookie Machine Operator Name Role Phone Dean Coleman MD Unavailable [phone] Megan Alvarado MD Primary Care Provider Allergies No known active allergies Medications atorvastatin (LIPITOR) 20 mg tablet Take 1 tablet (20 mg total) by mouth daily 2 Active omega 3-hqq-xxn-fish oil 1,200 (144-216) mg capsule Take 1,200 mg by mouth 2 (two) times a day Active DULoxetine DR (CYMBALTA) 30 mg capsule Take 1 capsule (30 mg total) by mouth daily 90 capsule 3 5 07/01/19 26 Active famotidine (PEPCID) 40 mg tablet 2 (two) times a day 4 Active cholecalciferol (VITAMIN D-3) 50,000 unit capsule Take 1 capsule (50,000 Units total) by mouth once a week 5 Active SUMATRIPTAN NASL Act vishnu dicyclomine (BENTYL) 10 mg capsule Take 1 capsule (10 mg total) by mouth daily as needed Active ondansetron ODT (ZOFRAN-ODT) 4 mg disintegrating tablet every 8 (eight) hours as needed Active cetirizine (ZyrTEC) 10 mg tablet Take 2 tablets (20 mg total) by mouth every morning Active hydrOXYzine (ATARAX) 10 mg tablet Take 2 tablets (20 mg total) by mouth nightly Active predniSONE (DELTASONE) 5 mg tablet Take 2 tablets daily x 5 days, then 1 tablet daily x 5 days 15 tablet 5 Active Active Problems Problem Noted Date Diagnosed Date Left wrist pain 12/18/2022 Assessment & Plan (06/30/2024 12:41 PM CDT): Continues to have pain within the wrist - wears splint prn. Will send to PT for strengthening to see if this would help. Assessment & Plan (02/20/2023 10:35 AM CDT): Saw Dr. Griffin last month who diagnosed her with a wrist sprain and encouraged continued NSAID use. Suspected her tissue laxity played a role. Left wrist is still sore and pops when she lifts anything over 5 lbs. She has been wearing the brace less as she thought she was not supposed to use it. Recommended wearing the brace when she is active to avoid further irritation but to leave it off when at rest. To increase diclofenac to twice daily dosing along with Tylenol Arthritis. Return to Dr. Griffin as needed. Assessment & Plan (12/18/2022 1:14 PM CDT): See above. Provided referral to Dr. 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 Trace bilateral knee joint fluids. -Cspine: unremarkable -Lspine: suggestion of minimal anterior wedging deformity of T12, minimal degenerative disc changes throughout, probable minimal grade 1 retrolisthesis of L3 over L4 -SI joints: unremarkable 02/2023 XRs: -Bilat shoulders: unremarkable -Bilat hips: unremarkable. No SI joint findings US right hand/wrist (07/09/22):Grade 1 effusion in the 2nd and 3rd PIP joints. Grade 1 power doppler in the wrist. Moderate synovial thickening in the 2nd and 3rd PIP joints. Assessment & Plan (12/30/2024 10:53 AM CDT): Remains on Cymbalta 30mg daily with benefit. Tried 1 dose of celebrex but felt sick/dizzy and discontinued. Continues to see Dr. 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 Now seeing Dr. Hollis for POTs and is to start PT soon. Did not go to PT for left wrist pain following last visit. She was feeling better up until this week but now noting increased GI discomfort, extremity swelling and joint discomfort. Will send out a short prednisone taper to address her joint discomfort as NSAIDS caused GI symptoms - to monitor swelling. She has not started gabapentin yet - recommend starting this when her soft tissue swelling has improved a little more. Continue current Cymbalta dose. To return in 6-12 months for re-evaluation. Assessment & Plan (06/30/2024 12:58 PM CDT): Remains on Cymbalta 30mg daily with benefit. Tried 1 dose of celebrex but felt sick/dizzy and did not retake. She had a telehealth visit with Dr. Frank Romero ([facility] Cotton Ball Machine Tender and Clerk Rating) who prescribed multiple medications for her MCAS, GI symptoms, etc with benefit. To see a POTS specialist at [facility] soon. Notes left wrist and left shoulder are still the most problematic. Will refer to PT for further evaluation/treatment to reduce pain. Continue Cymbalta at current dose. To return in 6-12 months for re-evaluation. Assessment & Plan (02/03/2024 12:52 PM CDT): Increased Cymbalta to 60mg daily but notes no further reduction in her joint pain. Remains on tumeric supplement. Off diclofenac (GI upset) and has a hx of gastric ulcers. Saw Dr. Das journeyman carpenter with unremarkable genetic testing and is trying to have her family members tested (sister, son). Underwent L shoulder MRI recently that only showed mild AC OA changes. Received a L shoulder kenalog injection with benefit but pain eventually returned. Continues to have dizziness, nausea, diarrhea and tachycardia. No synovitis on exam with several tender peripheral and axial joints. Will have her reduce Cymbalta back to 30mg daily and continue Turmeric supplement. Discussed use of tramadol prn for joint pain but she declined. She agreed to try Celebrex 100mg 1-2x daily as tolerated. Discussed use of a TENS unit and possible wrist cock up splint. To continue HEP for joint strengthening. To return in 6-[address] Lacey for Dr. Coleman. Assessment & Plan (12/06/2023 9:12 PM CDT): Continued cymbalta and turmeric. Off Diclofenac (GI upset). Saw Dr. Das journeyman carpenter with unremarkable genetic testing but may be having family members tested. Continues to experience subluxation of certain joints. Moderate pain with sensation of instability of left shoulder. Several tender peripheral joints with soft tissue swelling of the fingers without synovitis. Will have her increase Cymbalta to 60mg daily. Offered to injection left shoulder in office today and she was amenable - Dr. Coleman performed procedure. Will also order a shoulder MRI for additional evaluation. Consider referral to orthopedist pending results of MRI. Seen with Dr. Coleman. Patient was advised of the potential side effects of a kenalog steroid injection, including but not limited to increased blood sugar, pain, bleeding, infection and hypopigmentation at site. After obtaining verbal informed consent, the injection site was again verified with the patient and marked. Patient was then prepped in usual fashion using betadine and alcohol to sterilize the area and a no-touch technique was used. A 27 gauge needle was inserted into the intra-articular space of the left posterior shoulder. The patient was then given an intra-articular injection with 40 mg of kenalog and tolerated the procedure well without complications. Assessment & Plan (05/22/2023 7:34 PM DIRECTOR FOUNDATION): Increased diclofenac to 75mg BID after last visit and continued 30mg Cymbalta daily as well as Turmeric supplement. Still with left wrist pain jerel with lifting items above a certain weight. Began shoulder exercises at home with benefit although remain sore. Hips and knees have been bothering her more recently. Found to have very mild LFT elevations on labs 2 weeks ago with repeat in 2 months - atorvastatin is currently being held. Recommend she wear a left wrist brace when lifting/requiring use of left hand/wrist. Discussed that diclofenac may be causing the slight elevation in her LFTs and we will see what her repeat labs look like - with this low level elevation would not stop diclofenac or statin given her FH of early MIs. Continue to exercise/strengthen joints. To see journeyman carpenter in late August. Return visit in 4 months. Assessment & Plan (02/20/2023 10:41 AM CDT): Began diclofenac 75mg after last visit for her left wrist and diffuse joint pain but has only been taking at night. She completed PT but was not given home exercises to perform. Recent TTE with mild pulmonic regurgitation and diastolic dysfunction only, normal pulmonary pressure. Noting left shoulder, left wrist and right hip pain with popping in the hip and wrist with movement. Left shoulder is constantly sore. Encouraged her to contact her physical therapist for exercise instructions - she needs to be performing strengthening exercises daily to protect her joints. To increase diclofenac to 75mg BID as well as take 1300mg Tylenol Arthritis BID for joint pain. She has an appointment in August with the journeyman carpenter and does have a molding utility worker. Will obtain shoulder and pelvis XRs to evaluate for congenital glenoid or acetabular malformations. To return in 3 months, sooner if needed. Assessment & Plan (12/18/2022 1:14 PM CDT): Continued 30mg Cymbalta once daily with benefit toward her nerve pain but joints are still moderately sore. Leaned against her left wrist earlier this month and felt a pop and sudden pain. Left wrist XRs were negative at the hospital and she is now in a brace and has gone to PT with continued pain - trying to see an orthopedist for further evaluation. Left shoulder is sore as well. Has not been able to get into journeyman carpenter for EDS testing. Seed Corn Production Manager heard a murmur and is concerned for MVP - to get TTE soon. Began following a low carb/mediterranean like diet with some benefit. Still with soft tissue fullness in her fingers but no synovitis. Will have her continue 30mg Cymbalta daily, will not increase dose as she had moderate side effects when she first started. Discussed starting diclofenac 75mg BID to address her joint/left wrist pain and encouraged Tylenol Arthritis 1300mg BID alternating with the diclofenac. She was advised to avoid additional NSAIDs while on diclofenac. She was amenable to the plan. Will send referral to Emani Das journeyman carpenter. To return in 2 months, sooner if needed. Assessment & Plan (08/19/2022 12:12 PM CDT): Began 30mg cymbalta once daily after last visit with noted BP/HR irregularities, chills and nausea for the first 3 weeks but these symptoms have mostly abated. Does appreciate slight reduction in her day to day pain. Had first PT session with increased pain the days following and to have 2nd session today. Continues to have several tender peripheral joints and FM trigger points on exam. Will continue 30mg Cymbalta daily as she is just now tolerating it and noting improvement in her pain. If additional Cymbalta dose is needed in the future would consider addition of 20mg separately. Continue PT and exercises at home. She will try to see journeyman carpenter for EDS testing. Recommend evaluation by another molding utility worker for evaluation of potential POTs. To return in 3-4 months, sooner if needed. Assessment & Plan (07/17/2022 1:02 PM CDT): Ms. Sanchez is a 36yo female with PMH of anxiety, mild CHAMP (CPAP), high cholesterol, heartburn and hx of gastric ulcers who presented at last visit for additional evaluation of numerous symptoms. Reported 1 hr of AM stiffness affecting hands, shoulders and knees with occasional swelling in her hands. Described flare ups of diffuse arthralgias and myalgias where skin will be sensitive to the touch. Reported numbness of her extremities (legs >arms) with concurrent neck pain and radiation into head. Saw neurologist in her early 20s and diagnosed with neuropathies, given Lyrica without benefit. Additionally noted chest pain that radiates to her back with neg cardiology work up/stress test and was previously on Prilosec with continued CP. Concerned for POTs as HR will be in the 60s at rest and increase to 100-110 upon standing with nausea and dizziness. Used to be on Lexapro for anxiety but stopped this. Reported moderate GI symptoms and continuous nausea/sick sensation. Tries to avoid otc pain medications due to hx of gastric ulcers. Additional symptoms include fatigue, MENDEZ, photosensitive rashes, dry eyes, nasal sores, heat/cold intolerance, tinnitus and brain fog. FH significant for Mat GM with RA, 1st cousin with EDS and father () with fibromyalgia. 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 Radiographic imaging of her knees and L spine demonstrated mild osteoarthritic changes with unremarkable cervical spine and SI joints. A right hand/wrist US revealed grade 1 effusions with moderate synovial thickening in the 2nd and 3rd PIP joints with grade 1 power doppler in the wrist. Does not appear to have an autoimmune disease based on work up, although would recommend monitoring at this time given her abnormal US results. She is hypermobile on exam and meets Beighton scale for hypermobility which may be contributing to her joint pain - to this end would recommend trial of 30mg cymbalta daily as well as formal PT to strengthen joints and reduce potential future damage. Patient agreed to try PT and was provided with a referral. Reported symptoms are still concerning for Fibromyalgia (brain fog, flares, myalgias, skin sensitivity, fatigue) with her GI symptoms concerning for an anxiety component - will monitor at this time as she does not have enough physical evidence of Fibromyalgia to confidentally make the diagnosis. Return in 6-8 weeks, sooner if needed. Seen with Dr. Coleman. Assessment & Plan (07/02/2022 9:36 PM CDT): Ms. Sanchez is a 36yo female with PMH of anxiety, mild CHAMP (CPAP), high cholesterol, heartburn and hx of gastric ulcers who presents for additional evaluation of numerous symptoms. Reports 1 hr of AM stiffness affecting hands, shoulders and knees with occasional swelling in her hands. Describes flare ups of diffuse arthralgias and myalgias where skin will be sensitive to the touch. Reports numbness of her extremities (legs >arms) with concurrent neck pain and radiation into head. Saw neurologist in her early 20s and diagnosed with neuropathies, given Lyrica without benefit. Additionally notes chest pain that radiates to her back with neg cardiology work up/stress test and was previously on Prilosec with continued CP. Concerned for POTs as HR will be in the 60s at rest and increase to 100-110 upon standing with nausea and dizziness. Used to be on Lexapro for anxiety but topped this. Reports moderate GI symptoms and continuous nausea/sick sensation. Tries to avoid otc pain medications due to hx of gastric ulcers. Additional symptoms include fatigue, MENDEZ, photosensitive rashes, dry eyes, nasal sores, heat/cold intolerance, tinnitus and brain fog. FH significant for Mat GM with RA, 1st cousin with EDS and father () with fibromyalgia. Questionable fullness of the left > right wrists with few tender peripheral joints. /18 trigger points present with 7/9 Beighton Scale. Unlikely to have an autoimmune disease given lack of obvious synovitis on exam despite reports of hand stiffness. She is hypermobile on exam and meets Beighton scale for hypermobility which may be contributing to her joint pain. Symptoms are also concerning for Fibromyalgia (brain fog, flares, myalgias, skin sensitivity, fatigue) with her GI symptoms concerning for an anxiety component. Would consider restarting Cymbalta pending work up and give it more time to take effect - may reduce her GI symptoms as well as her arthralgias/myalgias to an extent. Will perform appropriate radiographs, serologies, and right hand US to assess the etiology of symptoms. Return in [address] Coleman. Encounters Date Type Department Care Team Description 12/30/2024 9:30 AM CDT Office Visit [facility] [address] [place] [phone] Liza Sultana PA Hypermobility arthralgia (Primary Dx) 12/30/2024 Telephone [facility] [address] [place] [phone] Tiffanie Shah from Last 3 Months Surgical History Surgery Date Site/Laterality Comments CHOLECYSTECTOMY SECTION TUBAL LIGATION -2022 Medical History Medical History Date Comments GERD (gastroesophageal reflux disease) 1994 Anxiety 2015 Osteoporosis 2022 Sleep apnea 2022 Kidney stone 2014 Family History Medical History Relation Name Comments Diabetes Father Domenic Stanleyr Jr Heart attack Father Domenic Stanleyr Jr Hypertension Father Domenic Stanleyr Jr Heart attack Maternal Grandfather Solo Kee Heart disease Maternal Grandfather Solo Kee Obesity Mother Belindabrendon Stanleyr Heart attack Paternal Grandfather Domenic Hair Hypertension Paternal Grandfather Domenic Hair Relation Name Status Comments Father Domneic Hair Jr Maternal Grandfather Solo Kee Mother Belinda Hair Paternal Grandfather Domenic Hair Social History Tobacco Use Types Packs/Day Years Used Date Smoking Tobacco: Former Cigarettes 0.5 10 0 12/29/2007 - 12/28/2017 Smokeless Tobacco: Never Tobacco Cessation:Counseling Given: Not Answered Personal Safety Answer Date Recorded Have you ever been in or are you currently in a harmful physical or emotional relationship or is someone making you feel afraid or unsafe? Denies 12/15/2022 Comments Unknown Sex and Gender Information Value Date Recorded Sex Assigned at Not on file Legal Sex Female 7:24 PM DIRECTOR FOUNDATION Gender Identity Not on file Sexual Orientation Not on file Obstetrics History Last Filed Vital Signs Vital Sign Reading Time Taken Comments Blood Pressure 122/78 12/30/2024 9:35 AM CDT Pulse 97 12/30/2024 9:35 AM CDT Temperature 36.6 C (97.9 F) 12/15/2022 6:02 PM CDT Respiratory Rate 22 12/15/2022 6:02 PM CDT Oxygen Saturation 97% 12/30/2024 9:35 AM CDT Inhaled Oxygen Concentration - - Weight 102.1 kg (225 lb) 12/30/2024 9:35 AM CDT Height 157.5 cm (5' 2) 12/30/2024 9:35 AM CDT Body Mass Index 41.15 12/30/2024 9:35 AM CDT Plan of Treatment Health Maintenance Due Date Last Done Comments Breast Cancer Screening-Mammogram 1983 Cervical Cancer Screening 1983 Depression Screening 1983 Hepatitis C Screening 1983 Varicella Vaccines (1 of 2 - 13+ 2-dose series) 12/30/1996 Hepatitis B Screening 12/30/2001 Regular Well Visit/Exam 18-64 12/30/2001 HPV Vaccines (1 - 3-dose SCDM series) 12/30/2010 Covid-19 Vaccine ( season) 2024 04/18/2021, 07/25/2020, 07/04/2020 Influenza Vaccine (#1) 2024 , 02/06/2023, 02/04/2022, Additional history exists DTaP/Tdap/Td Vaccine (2 - Td or Tdap) 06/09/2034 06/09/2024 Pneumococcal vaccine <65 Aged Out No longer eligible based on patient's age to complete this topic Insurance CHOICE PLUS CHOICE PLUS Care Teams Cracker And Cookie Machine Operator Relationship Specialty Start Date End Date Megan Alvarado MD [address] [facility] [address] [place] [address] PCP - General Family Medicine 06/30/24 Dean Coleman MD [address] [place] [address] Consulting Physician Rheumatology 05/23/22
--- OUTSIDE RECORDS SUMMARY | 2025-01-05 11:59 | XMS_ITS | Encounter Summary ---
Author Organization [facility] Address [address] [place] [address] Care Team Providers Care Linoleum Tile Layer Name Role Phone Megan Alvarado MD Primary Care Provider + Encounter Details Date Type Department Care Team (Late Contact Info) Description 11/21/2024 MyChart Message Enc [facility] Family Medicine [facility] [address] [phone] Megan Alvarado MD [address] [phone] [place] Social History Tobacco Use Types Packs/Day Years [...] Encounters Date Type Department Care Team (Late st Contact Info) Description 06/09/2025 1:20 PM FREIGHT REPRESENTATIVE Office Visit [facility] Family Medicine [facility] [address] [place] [address] Megan Alvarado MD [address] [place], [place] [phone] documented as of this encounter Visit Diagnoses Not on filedocumented in this encounter Additional Health Concerns Assessment Noted Time PHQ-9 Depression Total Score: 11 025 12:55 PM FREIGHT REPRESENTATIVE documented as of this encounter Care Teams Linoleum Tile Layer Relationship Specialty Start Date End Date Megan Alvarado MD [address] [place], [place] [id number] PCP - General FAMILY PRACTICE 06/09/24 documented as of this encounter
--- OUTSIDE RECORDS SUMMARY | 2025-01-05 11:59 | XMS_ITS | Clinical Summary ---
Author Organization [facility] Address [facility] [place] [address] Care Team Providers Care Cnmt Name Role Phone Megan Montenegro MD Primary Care Provider + Allergies No known active allergies Medications Cetirizine HCl 10 MG Cap 10 mg 4 (four) times daily. 4 Active cholestyramine (QUESTRAN) 4 GM/DOSE powder prn 4 Active CITRUS BERGAMOT OR A ctive diclofenac EC (VOLTAREN) 75 MG tablet Take 1 tablet (75 mg total) by mouth 2 (two) times daily. 4 Active dicyclomine (BENTYL) 10 MG capsule Take 1 capsule (10 mg total) by mouth. Active DULoxetine (CYMBALTA) 30 MG capsule Take 1 capsule (30 mg total) by mouth 2 (two) times daily. 4 02/04/20 25 Active famotidine (PEPCID) 40 MG tablet 2 (two) times daily. 4 Active omeprazole (PRILOSEC) 40 MG capsule Active ondansetron (ZOFRAN-ODT) 4 MG disintegrating tablet every 8 (eight) hours as needed. Active SUMATRIPTAN NA Activ e vitamin D3 (CHOLECALCIFEROL) 1.25 mg capsuleIndications: Vitamin D deficiency Take 1 capsule (50,000 Units total) by mouth once a week. 8 capsule 5 Active Active Problems Problem Noted Date Diagnosed Date POTS (postural orthostatic tachycardia syndrome) 11/07/2024 GERD (gastroesophageal reflux disease) Overview (06/09/2024): Takes omeprazole through GI, at Dr. Pavel Mathew. Hypermobile Ioana-Danlos syndrome (HHS/HCC) Overview (06/09/2024): Sees EDS specialist in [place]- Dr. Romero through EDS clinic. On diclofenac. 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 Managed with zyrtec and famotidine. Migraines 06/09/2024 Overview (06/09/2024): Takes sumatriptan through Dr. Romero as well. One or two a week. Sleep apnea treated with con tinuous positive airway pressure (CPAP) 06/09/2024 IBS (irritable bowel syndrome) 06/09/2024 Overview (06/09/2024): Takes cholestyramine. Encounters Date Type Department Care Team Description 11/21/2024 MyChart Message Enc [facility] Family [facility] - [place] [address] [place] [address] [place] [phone] Megan Montenegro MD Zepbound 11/15/2024 7:03 AM CDT - 11/15/2024 11:59 PM CDT Hospital Encounter [facility] Mammography [address] [address] Megan Montenegro MD Discharge Disposition: Home or Self Care (Routine Discharge) 11/15/2024 Results Follow-Up [facility] Medical [facility] Family [facility] - [place] [address] [facility] [address] [place] [phone] Megan Montenegro MD MG DIAG W RENITA RT DIGI, US BREAST RT BIRAD LTD 11/15/2024 Travel 11/07/2024 9:10 AM CDT Office Visit [facility] Family [facility] - [place] [address] [place] [address] Megan Montenegro MD Nodes (Right axillary area. Painful. Onset- 1 wk. ) 11/07/2024 Travel from Last 3 Months Immunizations Immunization Administration Dates Next Due FLUCELVAX (ccIIV3, TRIVALENT, 0.5mL) 12/27/2013 Influenza (Generic) 02/15/2024,05/06/2012 Influenza Adult (Generic) 02/06/2023,,01/15/2021,2018,02/24/2018 Tdap (Adacel) 06/09/2024 Family History Medical History Relation Comments No Known Problems Brother 1 No Known Problems Brother 2 Diabetes Father Early Father Heart Disease Father Hypertension Father Breast Cancer Maternal Aunt Early Maternal Grandfather Arthritis Maternal Grandmother Arthritis Mother Breast Cancer Other Early Paternal Grandfather Heart Disease Paternal Grandfather Hypertension Paternal Grandfather No Known Problems Sister No Known Problems Son Relation Status Comments Brother 1 Alive Brother 2 Alive Father Maternal Aunt Alive Maternal Grandfather Maternal Grandmother Mother Alive Other Alive Paternal Grandfather Sister Alive Son Alive Social History Tobacco Use Types Packs/Day Years Used Date Smoking Tobacco: Former Cigarettes 2 009 - 05/09/2018 Passive Smoke Exposure: Past Smokeless Tobacco: Never Tobacco Cessation:Counseling Given: No Alcohol Use Standard Drinks/Week Comments Yes 1.7 [...] Orientation Straight 12/22/2023 7: 55 AM CDT Last Filed Vital Signs Vital Sign Reading Time Taken Comments Blood Pressure 138/88 11/07/2024 9:19 AM CDT Pulse 82 11/07/2024 9:19 AM CDT Temperature 36.7 C (98.1 F) 11/07/2024 9:19 AM CDT Respiratory Rate - - Oxygen Saturation 97% 11/07/2024 9:19 AM CDT Inhaled Oxygen Concentration - - Weight 102.3 kg (225 lb 9.6 oz) 11/07/2024 9:19 AM CDT Height 157.5 cm (5' 2) 11/07/2024 9:19 AM CDT Body Mass Index 41.26 11/07/2024 9:19 AM CDT Plan of Treatment Upcoming Encounters Date Type Department Care Team (Late st Contact Info) Description 06/09/2025 1:20 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 [address] [place] [phone] Megan Montenegro MD [address] [place], [place] [id number] Health Maintenance Due Date Last Done Comments Cervical Cancer Screening Pa p Smear (Age 30 to 64) Every 3 Years 1983 Hepatitis C 12/30/2001 Hepatitis B Vaccines (1 of 3 - 19+ 3-dose series) 12/30/2002 HPV Vaccines (1 - 3-dose SCD M series) 12/30/2010 COVID-19 Vaccine (2024-2 6 season) 2024 04/18/2021, 07/25/2020, 07/04/2020 Annual Physical 06/09/2025 06/09/2024 Mammogram Screening 11/15/2026 11/15/2024, 01/04/2024 Cervical Cancer Screening Pa p with HPV Testing (Age 30 to 64) Every 5 Years 04/29/2027 04/29/2022 Cervical Cancer Screening wi th HPV 04/29/2027 DTaP, Tdap and Td Vaccines ( 2 - Td or Tdap) 06/09/2034 06/09/2024 PHQ-2 (Physician [place]) Completed 06/09/2024 Meningococcal B Vaccine Aged Out No l onger eligible based on patient's age to complete this topic Meningococcal Vaccine Aged Out No cristian yary eligible based on patient's age to complete this topic Pneumococcal Vaccine: Pediatrics (0 to 5 Years) and At-Risk Patients (6 to 49 Years) Aged Out No longer eligible b ased on patient's age to complete this topic RSV Immunizations Under 20 Months Aged Out No longer eligible b ased on patient's age to complete this topic Procedures Procedure Name Priority Date/Time Associated Diagnosis Comments US BREAST RT BIRAD LTD Routine 11/15/2024 8:22 AM CDT Axillary lump, right MG DIAG W RENITA RT DIGI Routine 11/15/2024 7:37 AM CDT Axillary lump, right OUTSIDE CYTOPATH CERV/VAG INTERPRET (PAP) 04/29/2022 from Last 3 Months or Most Recently Relevant to Health Maintenance Results * US BREAST RT BIRAD LTD (11/15/2024 8:22 AM CDT) Anatomical Region Laterality Modality Breast Right Ultrasound 11/15/2024 8:15 AM CDT Impressions 11/15/2024 8:20 AM CDT ===== IMPRESSION: ===== 1. Possible atypical lipoma in the right axilla. No corresponding mammographic abnormality. Assessment: ACR BI-RADS 3 - PROBABLY BENIGN FINDING(S) - SHORT INTERVAL FOLLOW- UP SUGGESTED Recommendation: 1:Short interval follow-up in 6 months. Right Comments: If pain increases or there is new symptomatology, surgical consultation may BE of benefit. Ordered By: MEGAN MONTENEGRO Interpreted By: Soto Salazar, 11/15/2024 8:15 AM Narrative 11/15/2024 8:20 AM CDT [facility] [address] [place] [address] EXAMINATION: Digital right diagnostic mammogram with 3-D tomosynthesis. Right breast ultrasound [id number] EXAM DATE/TIME: 11/15/2024 7:00 AM REASON FOR EXAM: right axillary lump Symptoms for 3 weeks. COMPARISON: 01/04/2024 TECHNIQUE: Digital diagnostic mammography of the right breast was performed in addition to 3-D Tomosynthesis technique. This study was read with the assistance of a computer-aided detection system. TISSUE DENSITY: There are scattered areas of fibroglandular density. Findings: Marker placed in the superior right axillary region. No gross underlying abnormality. No malignant microcalcifications or dominant mass. No distinct underlying lymph node. Right breast parenchyma without gross abnormality. . Right breast ultrasound. Directed imaging over the area of palpable mass and pain in the superior right axilla. There is an underlying slightly ill-defined mixed echogenic subcutaneous lesion. Minimal color flow. May be atypical lipoma. Contains linear hypoechoic area without color flow.. Measures 1.0 x 0.6 x 1.2 cm. us Megan Montenegro MD ULTRASOUND Final Re sult * MG DIAG W RENITA RT DIGI (11/15/2024 7:37 AM CDT) Anatomical Region Laterality Modality Breast Right Mammography 11/15/2024 8:15 AM CDT Impressions 11/15/2024 8:20 AM CDT ===== IMPRESSION: ===== 1. Possible atypical lipoma in the right axilla. No corresponding mammographic abnormality. Assessment: ACR BI-RADS 3 - PROBABLY BENIGN FINDING(S) - SHORT INTERVAL FOLLOW- UP SUGGESTED Recommendation: 1:Short interval follow-up in 6 months. Right Comments: If pain increases or there is new symptomatology, surgical consultation may BE of benefit. Ordered By: MEGAN MONTENEGRO Interpreted By: Soto Salazar, 11/15/2024 8:15 AM Narrative 11/15/2024 8:20 AM CDT [facility] [address] [place] [address] EXAMINATION: Digital right diagnostic mammogram with 3-D tomosynthesis. Right breast ultrasound [id number] EXAM DATE/TIME: 11/15/2024 7:00 AM REASON FOR EXAM: right axillary lump Symptoms for 3 weeks. COMPARISON: 01/04/2024 TECHNIQUE: Digital diagnostic mammography of the right breast was performed in addition to 3-D Tomosynthesis technique. This study was read with the assistance of a computer-aided detection system. TISSUE DENSITY: There are scattered areas of fibroglandular density. Findings: Marker placed in the superior right axillary region. No gross underlying abnormality. No malignant microcalcifications or dominant mass. No distinct underlying lymph node. Right breast parenchyma without gross abnormality. . Right breast ultrasound. Directed imaging over the area of palpable mass and pain in the superior right axilla. There is an underlying slightly ill-defined mixed echogenic subcutaneous lesion. Minimal color flow. May be atypical lipoma. Contains linear hypoechoic area without color flow.. Measures 1.0 x 0.6 x 1.2 cm. us Megan Montenegro MD MAMMO Final Re sult * PAP SMEAR WITH HPV (04/29/2022) 04/29/2022 [facility] Scanned SCANNING Final Resu lt from Last 3 Months or Most Recently Relevant to Health Maintenance Insurance [facility] Care Teams Cnmt Relationship Specialty Start Date End Date Megan Montenegro MD [address] [place] [phone] PCP - General FAMILY PRACTICE 06/09/24
== END 2025-01-05 11:39 | disposition home or self-care (01) ==
PROVIDERS: PCP Student in an Organized Health Care Education/Training Program; Visit Provider Obstetrics & Gynecology
DX: Z12.31 Encounter for screening mammogram for malignant neoplasm of breast (principal)
CPT/HCPCS: 77063; 77067